=== PATIENT | female | born 1980 | race Hispanic/Latino ===

== ENCOUNTER 2017-12-02 20:37 | Emergency (ER) | payer BC ==
[~2017-12-02 20:37] MED LIST: ISOVUE-370 76%-LOCM 1 ML ONE
[2017-12-02 21:31] LABS: #Eosinphils 0.2 thou/uL (0.0-0.7); #Lymphocytes 2.5 thou/uL (1.20-3.40); #Monocytes 0.7 thou/uL (0.11-0.59); #Neutrophils 5.4 thou/uL (1.40-6.50); %Basophils 0.4 % (0.0-1.0); %Eosinophils 2.1 % (0.0-10.0); %Lymphocytes 28.4 % (21.0-51.0); %Monocytes 8.4 % (0.0-10.0); %Neutrophils 60.8 % (42.0-75.0); Hemoglobin 13.3 g/dL (12.0-16.0); Mean Corpuscular HGB CONC 34.9 g/dL (32.0-36.0); Mean Corpuscular Hemoglobin 31.3 pg (27.0-31.0); Mean Corpuscular Volume 89.6 fL (78.0-98.0); Mean Platelet Volume 8.4 fL (7.4-10.4); Platelet Count 237 thou/uL (130-400); RBC Distribution Width 12.2 % (11.5-14.5); Red Blood Cell (RBC) Count 4.25 mill/uL (4.20-5.40); White Blood Cell (WBC) Count 8.8 thou/uL (4.8-10.8)
[2017-12-02 21:44] LABS: BHCG - Serum Negative (NEGATIVE); Pregs Control Background? CLEAR/WHITE (CLR/WHITE); Pregs Control Bar Appear? YES (CONTROL BAR)
[2017-12-02 21:49] LABS: ALT (SGPT) 57 U/L (8-55); AST (SGOT) 34 U/L (5-34); Albumin 4.5 g/dL (3.5-5.0); Alkaline Phosphatase 129 U/L (40-150); Anion Gap 10 mmol/L (10-20); BUN (Urea Nitrogen) 5 mg/dL (7.0-18.7); Bilirubin, Total 0.7 mg/dL (0.2-1.2); Calc. Creatinine Clearance 0 mL/min (70-130); Calcium 9.6 mg/dL (7.8-10.44); Carbon Dioxide 27 mmol/L (22-29); Chloride 106 mmol/L (98-107); Estimated GFR-MDRD 84; Globulin 3.3 g/dL (2.4-3.5); Glucose 104 mg/dL (70-105); Protein, Total 7.8 g/dL (6.0-8.3); Sodium 140 mmol/L (136-145)
[2017-12-02 22:16] LABS: Bilirubin Negative (Negative); Blood, Urine Negative (Negative); Clarity CLEAR (Clear); Glucose, Urine (Dipstick) Negative (Negative); Leukocyte Negative (Negative); Nitrite Negative (Negative); Protein, Urine (Dipstick) Negative (Neg-Trace); Specific Gravity, Urine 1.008 (1.002-1.036); pH, Urine 7.5 (5.0-9.0)
--- NOTE | 2017-12-02 23:14 | CT ---
CT ABDOMEN AND PELVIS WITH IV CONTRAST: 12/02/17 HISTORY: Abdominal pain. FINDINGS: Lung bases are clear. The liver, spleen, pancreas, bilateral adrenal glands, kidneys, and abdominal aorta demonstrate a nor mal CT appearance. Urinary bladder is partially distended and normal in appearance. The uterus is normal in appearance. Superior and posterior to the level of the uterus, there is a well circumscribed hypodense fluid atte nuation collection which measures 6.1 cm AP x 5.2 cm transverse. There is no gas seen in this locatio n to suggest an abscess, and the enhancing [place] of this fluid collection are thin. Tiny amount of ad jacent free fluid is present. The appendix is visualized and is normal in caliber. There are several unopacified loops of bowel within the pelvis. There is prominence of the adnexal st ructures bilaterally. The exact etiology for this hypodense fluid collection is uncertain. Small fat containing umbilical hernia is present. Incidental note is made of a circumaortic renal vein. IMPRESSION: 1. Hypodense fluid collection within the central pelvis which is posterior and superior to the l evel of the uterus. This collection measures 6.1 cm in maximal dimensions. The exact etiology for thi s structure is uncertain. There is no gas within this structure to suggest that this represents an ab scess. A pelvic ultrasound examination performed on 12/31/15 did demonstrate a large right adnexal cys tic structure which may account for this finding. There is a small amount of adjacent free fluid. 2. Small fat containing umbilical hernia. 3. Followup pelvic ultrasound may be helpful for further evaluation and to and to correlate with study in 2016. POS: [facility]
--- NOTE | 2017-12-03 00:02 | ULT ---
PELVIC ULTRASOUND 12/02/17 HISTORY: Abdominal pain. Patient complains of right lower quadrant as well as suprapubic pelvic pain. Negative test. Patient is four months with delivery on 07/21/17. FINDINGS: The uterus demonstrates a normal sonographic appearance and measures 9.1 cm x 3.6 cm x 4.9 cm. Endome trial strip measures 0.4 cm in thickness which is within normal limits. No fluid or fluid collection is seen in the endometrial canal. Right ovary measures 2.8 cm x 2 cm x 2.2 cm with the left ovary measuring 2.9 cm x 2.5 cm x 1.5 cm. T he ovaries demonstrate a normal sonographic appearance bilaterally. Doppler evaluation of each ovary with color flow evaluation and spectral analysis demonstrates arterial and venous flow in each ovary. There is a 5.2 cm x 4.8 cm x 3.8 cm anechoic cystic structure seen within the pelvis posterior to the uterus and adjacent to the right ovary. This is not contiguous with the right ovary. This cystic str ucture is in the same location as on prior examination on 12/31/15. Cystic structure on that examinati on measured 5.2 cm x 3.7 cm x 3.1 cm and does measure slightly larger in size compared to the prior s tudy. There is a small amount of free fluid in the pelvis adjacent to the cystic structure. IMPRESSION: 1. Circumscribed anechoic cystic structure posterior to the uterus which is not contiguous with the adjacent right ovary. This cystic structure is stable in appearance compared to a prior study in 2016; although the cystic structure measures slightly larger in size. Again, exact etiology is uncert ain. 2. Normal appearing uterus and bilateral ovaries. 3. Tiny amount of free fluid in the pelvis. POS: [facility]
== END 2017-12-03 00:40 | disposition home or self-care (01) ==
LOC: ERS 20:37
DX: R10.32 Left lower quadrant pain (principal); R50.9 Fever, unspecified
CPT/HCPCS: 74177; 76856; 80053; 81003; 83690; 84703; 85025; 96360; 96361